=== PATIENT | male | born 2005 | race Two or more races ===

== ENCOUNTER 2024-10-12 00:01 | Emergency (ER) | payer OTHER ==
[~2024-10-12] VITALS: Ht 167.6 cm; Wt 54.5 kg
[2024-10-12 00:08] VITALS: TEMP 98.2
[2024-10-12 00:51] VITALS: BP 138/117; PULSE 91; RESP 18; O2SAT 98
[2024-10-12] MEDS: ACETAMINOPHEN 500 MG TABLET PO ONE (00:53)
[2024-10-12] MEDS: IBUPROFEN 400 MG TABLET PO ONE (00:53)
== END 2024-10-12 01:40 | disposition home or self-care (01) ==
LOC: EMS 00:15
DX: S42.021A Displaced fracture of shaft of right clavicle, initial encounter for closed fracture (principal); W19.XXXA Unspecified fall, initial encounter; Y93.89 Activity, other specified; Y92.89 Other specified places as the place of occurrence of the external cause; Y99.9 Unspecified external cause status
CPT/HCPCS: 99284; 73000-TC; 73030-TC; Z7502; Z7610